=== PATIENT | female | born 1990 | race Caucasian/White ===

== ENCOUNTER → 2016-05-09 | Outpatient (CLI) | payer OTHER ==
[~2016-05-09] MED LIST: ACET-1311 PO; AMOX875T PO; CLON1TAB3 PO; DESO5TAB PO; DOCU-94 PO; IBUP-1050 PO; METH4PAK PO; OXYC-57 PO; OXYC1TAB3 PO; SENN1TAB77 PO; VENL150C PO
== END | disposition home or self-care (01) ==
LOC: C.LABSPEC 17:06
PROVIDERS: ATTEND Nurse Practitioner Adult Health
DX: N20.0 Calculus of kidney (principal)

== ENCOUNTER → 2016-05-17 | Outpatient (CLI) | payer OTHER | END | disposition home or self-care (01) | LOC: C.LABSPEC 10:27 | PROVIDERS: ATTEND Nurse Practitioner Adult Health | DX: N20.0 Calculus of kidney (principal) ==

== ENCOUNTER → 2016-05-17 | Outpatient (CLI) | payer OTHER ==
--- NOTE | 2016-05-17 18:04 | DIAGNOSTIC IMAGING REPORT ---
KUB CLINICAL HISTORY: Nephrolithiasis. Bilateral flank pain. FINDINGS: 2 AP abdominal radiographs are obtained. No prior studies are available for comparison at the time of dictation. There is a nonobstructed abdominal bowel gas pattern noting moderate colonic fecal retention. There is no radiographic evidence of nephrolithiasis. The bony structures appear intact. IMPRESSION: 1. Moderate constipation. 2. There is no radiographic evidence of nephrolithiasis. Electronically signed by: Jeff Sanchez M.D. 05/17/2016 6:02 PM Dictated Date/Time: 05/17/2016 6:01 PM
== END | disposition home or self-care (01) ==
LOC: C.RAD 16:28
PROVIDERS: ATTEND Nurse Practitioner Adult Health
DX: N20.0 Calculus of kidney (principal)

== ENCOUNTER 2016-05-18 11:44 | Emergency (ER) | payer OTHER ==
[~2016-05-18] VITALS: Ht 152.4 cm; Wt 94.7 kg
[~2016-05-18 11:44] MED LIST changes: -ACET-1311 PO; -AMOX875T PO; -DESO5TAB PO; -DOCU-94 PO; -IBUP-1050 PO; -METH4PAK PO; -OXYC-57 PO; -OXYC1TAB3 PO; -SENN1TAB77 PO
[2016-05-18 11:46] VITALS: TEMP 37.1; Ht 152.4 cm; Wt 94.7 kg
[2016-05-18] MEDS ORDERED: DESO5TAB PO (12:08)
[2016-05-18] MEDS ORDERED: IBUP-1050 PO (12:08)
[2016-05-18] MEDS ORDERED: ACET-1311 PO (12:08)
[2016-05-18] MEDS ORDERED: KETOROLAC TROMETHAMINE 30 MG/ML VIAL IV STA (12:53)
[2016-05-18] MEDS ORDERED: ONDANSETRON INJ 2 MG/ML 2 ML VIAL IV STA (12:53)
[2016-05-18] MEDS ORDERED: HYDROmorphone INJ 1 MG/ML SYR IV STA (12:53)
[2016-05-18] MEDS ORDERED: SODIUM CHLORIDE 0.9% 1000ML 1,000 ML IV STA (12:53)
[2016-05-18 13:06] LABS: URINE APPEARANCE CLEAR (CLEAR); URINE BILIRUBIN NEG (NEG); URINE COLOR YELLOW; URINE EPITHELIAL CELL AUTO >30 /lpf (0-5); URINE NITRITE NEG (NEG); URINE SPECIFIC GRAVITY 1.007 (1.000-1.030); UROBILINOGEN NEG (NEG); ZZUR CULT IF INDIC CLEAN CATCH YES
[2016-05-18 13:18] LABS: MANUAL MICROSCOPIC REQUIRED? NO; REVIEW REQ? YES
[2016-05-18 13:50] LABS: HEMATOCRIT 39.6 % (37-47); MEAN CELL VOLUME 83.5 fL (80-100); MEAN CORPUSCULAR HEMOGLOBIN 29.1 pg (25-34); MEAN CORPUSCULAR HGB CONC 34.8 g/dl (32-36); MEAN PLATELET VOLUME 9.3 fL (7.4-10.4); PLATELET COUNT 304 K/uL (130-400); RED BLOOD COUNT 4.74 M/uL (4.2-5.4); WHITE BLOOD COUNT 12.18 K/uL (4.8-10.8)
[2016-05-18 14:08] LABS: BLOOD UREA NITROGEN 13 mg/dl (7-18); BUN/CREATININE RATIO 17.7 (10-20); CALCIUM 9.5 mg/dl (8.5-10.1); CARBON DIOXIDE 23 mmol/L (21-32); CHLORIDE 108 mmol/L (98-107); CREATININE 0.72 mg/dl (0.60-1.20); GLUCOSE 63 mg/dl (70-99); POTASSIUM 3.7 mmol/L (3.5-5.1); SODIUM 141 mmol/L (136-145)
[2016-05-18 14:11] LABS: ALKALINE PHOSPHATASE 76 U/L (45-117); ALT/SGPT 45 U/L (12-78); AST/SGOT 14 U/L (15-37)
--- NOTE | 2016-05-18 14:15 | EMERGENCY ROOM VISIT NOTE ---
History Report prepared by Reginaldo: Terrie Freeman Under the Supervision of: Dr. Mikael Miranda M.D. First contact with patient: 12:47 Chief Complaint: BACK PAIN Stated Complaint: KIDNEY/BACK PAIN History of Present Illness The patient is a 25 year old female who presents to the Emergency Room with complaints of increased pain to her left flank, radiating around to her left lower abdominal quadrant, over the past few days. Currently, she rates her discomfort as a 5/10, which was not resolved after taking ibuprofen or Motrin at 0900 this morning. Since the time of onset, the patient has also felt nauseous, but she denies vomiting and she has not passed any movements of diarrhea. The patient has a significant history of kidney stones, were were previously diagnosed via CT scan at [facility] several years ago. As the pains to her left flank, radiating around to her left abdomen (which she states is similar to her past episodes of kidney stones) were exacerbated a few days ago, patient visited [facility] of urology and was referred to the hospital to have x- rays yesterday. Patient was not informed of the results of her x-rays, however she was instructed to drink large amounts of water. She denies having dysuria or hematuria, but states that the pain to her back worsens after drinking fluids. The patient denies recent fevers, chills, chest pain, shortness of breath, or increased swelling to her legs. Her last normal menstrual cycle was 3 weeks ago, and she denies chance of . Source of History: patient Onset: over the past few days Position: back (left flank) Symptom Intensity: 5/10 Timing: other (increased) Modifying Factors (Relieving): other (No relief with ibuprofen or Motrin) Associated Symptoms: + nausea, No SOB, No chest pain, No chills, No diarrhea , No fevers, No urinary symptoms, No vomiting Review of Systems See HPI for pertinent positives & negatives. A total of 10 systems reviewed and were otherwise negative. Past Medical & Surgical Medical Problems: (1) History of mononucleosis Social History Smoking Status: Current Every Day Smoker Alcohol Use: occasionally Drug Use: none Marital Status: Housing Status: lives with family Occupation Status: employed Current/Historical Medications Scheduled Desogestrel-Ethinyl Estradiol (Pimtrea 0.15-0.02/0.01 mg (18/09)), 1 TAB PO DAILY Docusate Sodium (Colace), 1 CAP PO BID Sennosides (Senokot), 8.6 MG PO HS Venlafaxine Hcl (Effexor Xr), 150 MG PO DAILY Scheduled PRN Clonazepam (Klonopin), 1 MG PO DAILY PRN for Anxiety Oxycodone/Acetaminophen 5MG/325MG (Percocet 5MG/325MG), 1-2 TAB PO Q4H PRN for Pain Miscellaneous Medications Acetaminophen (Tylenol), 650 MG PO Ibuprofen (Advil), 600 MG PO Allergies Coded Allergies: Gluten (Verified Allergy, Unknown, GI distress, 05/18/16) Sulfamethoxazole w/Trimethoprim (Unverified Allergy, Unknown, HIVES, ) Physical Exam Vital Signs Date Time Temp Pulse Resp B/P Pulse Ox O2 Delivery O2 Flow Rate FiO2 05/18/16 15:36 63 20 115/71 96 05/18/16 13:48 71 20 113/61 96 Room Air 05/18/16 11:46 37.1 81 17 124/79 96 Room Air Physical Exam GENERAL: Patient is a healthy-appearing well-nourished 25 year old female. HEAD: Normocephalic atraumatic EYES: Ocular movements intact pupils equal and react to light OROPHARYNX mucous membranes are moist no exudates present no erythema or edema present NECK: Supple no nuchal rigidity CHEST: Good equal expansion LUNGS: Clear and equal to auscultation CARDIAC: Normal S1 and S2 ABDOMEN: Soft nontender no guarding BACK: No CVA tenderness EXTREMITIES: No pain upon palpation normal muscle strength in all groups no clubbing cyanosis or edema NEURO: Patient is following commands is answering questions appropriately. Alert and oriented x3 Cranial Nerves 2-12 grossly intact Medical Decision & Procedures ER Provider Diagnostic Interpretation: US results as stated below per my review and radiologist interpretation: RENAL ULTRASOUND CLINICAL HISTORY: Left-sided flank pain. COMPARISON STUDY: KUB May 17, 2016. TECHNIQUE: Sonography of the kidneys and the urinary bladder was performed. FINDINGS: The right kidney measures 12.1 x 4.9 x 5.5 cm and the left measures 12 x 5.5 x 5.6 cm. There is no hydronephrosis. No calculi are identified. Renal echogenicity, size and cortical thickness are normal. Incidental no was made of fatty infiltration of the liver. Both ureteral jets were visualized. IMPRESSION: 1. Normal renal ultrasound. No hydronephrosis. 2. Fatty liver. Electronically signed by: Chino Chavez M.D. 05/18/2016 2:38 PM Dictated Date/Time: 05/18/2016 2:37 PM Laboratory Results 05/18/16 13:30 05/18/16 13:30 Test 05/18/16 12:15 05/18/16 13:30 Urine Color YELLOW Urine Appearance CLEAR (CLEAR) Urine pH 6.0 (4.5-7.5) Urine Specific [place] 1.007 (1.000-1.030) Urine Protein NEG (NEG) Urine Glucose (UA) NEG (NEG) Urine Ketones NEG (NEG) Urine Occult Blood 2+ (NEG) Urine Nitrite NEG (NEG) Urine Bilirubin NEG (NEG) Urine Urobilinogen NEG (NEG) Urine Leukocyte Esterase NEG (NEG) Urine WBC (Auto) 1-5 /hpf (0-5) Urine RBC (Auto) 0-4 /hpf (0-4) Urine Hyaline Casts (Auto) 0 /lpf (0-5) Urine Epithelial Cells (Auto) >30 /lpf (0-5) Urine Bacteria (Auto) 1+ (NEG) Urine Yeast (Auto) (NONE PRSENT) Red Blood Count 4.74 M/uL (4.2-5.4) Mean Corpuscular Volume 83.5 fL (80-100) Mean Corpuscular Hemoglobin 29.1 pg (25-34) Mean Corpuscular Hemoglobin Concent 34.8 g/dl (32-36) RDW Standard Deviation 40.4 fL (36.4-46.3) RDW Coefficient of Variation 13.3 % (11.5-14.5) Mean Platelet Volume 9.3 fL (7.4-10.4) Anion Gap 10.0 mmol/L (3-11) Est Creatinine Clear Calc Drug Dose 120.8 ml/min Estimated GFR () 133.0 Estimated GFR (Non- 114.8 BUN/Creatinine Ratio 17.7 (10-20) Calcium Level 9.5 mg/dl (8.5-10.1) Total Bilirubin 0.3 mg/dl (0.2-1) Direct Bilirubin < 0.1 mg/dl (0-0.2) Aspartate Amino Transf (AST/SGOT) 14 U/L (15-37) Alanine Aminotransferase (ALT/SGPT) 45 U/L (12-78) Alkaline Phosphatase 76 U/L (45-117) Total Protein 7.8 gm/dl (6.4-8.2) Albumin 3.9 gm/dl (3.4-5.0) Lipase 117 U/L (73-393) Labs reviewed by ED physician. Medications Administered Medications (Trade) Dose Ordered Sig/Dorina Route Start Time Stop Time Status Last Admin Dose Admin Sodium Chloride (Nss 1000ml) 1,000 ml @ 999 mls/hr Q1H1M STAT IV 05/18/16 12:53 05/18/16 13:53 DC 05/18/16 13:43 999 MLS/HR Ketorolac Tromethamine (Toradol Inj) 30 mg NOW STAT IV 05/18/16 12:53 05/18/16 12:55 DC 05/18/16 13:42 30 MG Hydromorphone HCl (Dilaudid Inj) 1 mg NOW STAT IV 05/18/16 12:53 05/18/16 12:55 DC 05/18/16 13:42 1 MG Ondansetron HCl (Zofran Inj) 4 mg NOW STAT IV 05/18/16 12:53 05/18/16 12:55 DC 05/18/16 13:41 4 MG Magnesium Citrate (Citrate Of Magnesia Soln) 296 ml NOW STAT PO 05/18/16 14:55 05/18/16 14:57 DC 05/18/16 15:35 296 ML ED Course 1248: Past medical records reviewed. The patient was evaluated in room C11. A complete history and physical examination was performed. 1253: Zofran 4 mg IV, Dilaudid 1 mg IV, Toradol 30 mg IV and NSS bolus IV were ordered. 1455: Upon reevaluation, the patient was feeling improved after receiving the medications. I updated her on the results of her radiology reports and lab tests. Magnesium Citrate 296 ml PO was ordered. Discharge instructions were also discussed at this time. She verbalized her understanding and agreement with the treatment plan, and she is now ready for disposition. Medical Decision Differential diagnosis: Etiologies such as renal colic, appendicitis, diverticulitis, mesenteric ischemia, aortic pathology, infections, inflammatory bowel disease, PUD, biliary pathology, UTI, as well as others were entertained. This is a 25-year-old female who presents emergency department complaining of flank pain. The patient does have a small amount of blood in her urine. She recently had a CAT scan and using shared medical decision making we felt that a another CAT scan would not benefit this patient. In addition the patient has a soft abdomen on examination. Serial abdominal examinations were performed on the patient in the emergency department and at no time did the patient exhibited a surgical abdomen. She has a normal CBC normal renal profile normal liver profile normal lipase. Renal ultrasound does not show any evidence of hydronephrosis. In addition the patient had a KUB which was performed yesterday which showed a large amount of constipation. Based on these findings I recommended a magnesium citrate cleanout for the patient as well as follow-up with urology. Patient was in agreement with the treatment plan. Impression Primary Impression: Hematuria Additional Impressions: Back pain Constipation Scribe Attestation The scribe's documentation has been prepared under my direction and personally reviewed by me in its entirety. I confirm that the note above accurately reflects all work, treatment, procedures, and medical decision making performed by me. Departure Information Dispostion Home / Self-Care Prescriptions Docusate Sodium (COLACE) 100 Mg Cap 1 CAP PO BID for 10 Days, #20 CAP Prov: Mikael Miranda MD 05/18/16 Sennosides (SENOKOT) 8.6 Mg Tab 8.6 MG PO HS for 10 Days, #10 TAB Prov: Mikael Miranda MD 05/18/16 Oxycodone/Acetaminophen 5MG/325MG (PERCOCET 5MG/325MG) Tab 1-2 TAB PO Q4H Y for Pain, #14 TAB Prov: Mikael Miranda MD 05/18/16 Referrals Anders Simon D.O. (PCP) Forms HOME CARE DOCUMENTATION FORM, IMPORTANT VISIT INFORMATION Patient Instructions Constipation, ED Flank Pain Uncertain Cause, My [facility] Additional Instructions Take 1/2 bottle of Mag Citrate Repeat second half in six hours Clear liquid diet next 48 hours Follow up with Dr Jackman's office You received narcotic or benzodiazepene medication while in the emergency room today. Do not drive, operate heavy machinery, or drink alcohol under the influence of this medication. Take 600 mg Ibuprofen every 6 hours Take Percocet for breakthrough pain You have been examined and treated today on an emergency basis only. This is not a substitute for, or an effort to provide, complete comprehensive medical care. It is impossible to recognize and treat all injuries or illnesses in a single emergency department visit. It is therefore important that you follow up closely with Dr Simon. Call as soon as possible for an appointment. Thank you for your time and consideration. I look forward to speaking with you again soon. Please don't hesitate to call us if you have any questions. Problem Qualifiers Additional Impressions: Back pain Back pain location: thoracic back pain Chronicity: acute Back pain laterality: left Qualified Codes: M54.6 - Pain in thoracic spine Constipation Constipation type: unspecified constipation type Qualified Codes: K59.00 - Constipation, unspecified
--- NOTE | 2016-05-18 14:40 | DIAGNOSTIC IMAGING REPORT ---
RENAL ULTRASOUND CLINICAL HISTORY: Left-sided flank pain. COMPARISON STUDY: KUB May 17, 2016. TECHNIQUE: Sonography of the kidneys and the urinary bladder was performed. FINDINGS: The right kidney measures 12.1 x 4.9 x 5.5 cm and the left measures 12 x 5.5 x 5.6 cm. There is no hydronephrosis. No calculi are identified. Renal echogenicity, size and cortical thickness are normal. Incidental no was made of fatty infiltration of the liver. Both ureteral jets were visualized. IMPRESSION: 1. Normal renal ultrasound. No hydronephrosis. 2. Fatty liver. Electronically signed by: Chino Chavez M.D. 05/18/2016 2:38 PM Dictated Date/Time: 05/18/2016 2:37 PM
[2016-05-18] MEDS ORDERED: MAGNESIUM CITRATE 296 ML/BTL PO STA (14:55)
[2016-05-18] MEDS ORDERED: OXYC-57 PO (14:57)
[2016-05-18] MEDS ORDERED: DOCU-94 PO (14:57)
[2016-05-18] MEDS ORDERED: SENN1TAB77 PO (14:57)
[2016-05-18 15:36] VITALS: BP 115/71; PULSE 63; O2SAT 96
== END 2016-05-18 15:37 | disposition home or self-care (01) ==
LOC: C.EDB 11:45 → C.EDC 15:37
DX: R31.9 Hematuria, unspecified (principal); M54.6 Pain in thoracic spine; K59.00 Constipation, unspecified; F17.200 Nicotine dependence, unspecified, uncomplicated

== ENCOUNTER 2016-05-28 21:13 | Emergency (ER) | payer OTHER ==
[~2016-05-28] VITALS: Ht 152.4 cm; Wt 93.4 kg
[~2016-05-28 21:13] MED LIST changes: +ACET-1311 PO; +DESO5TAB PO; +DOCU-94 PO; +IBUP-1050 PO; +OXYC-57 PO; +SENN1TAB77 PO
[2016-05-28 21:16] VITALS: BP 130/89; PULSE 102; TEMP 37; Ht 152.4 cm; Wt 93.4 kg
[2016-05-28 21:19] VITALS: O2SAT 97
[2016-05-28] MEDS ORDERED: AMOXICIL/CLAVU 875MG HOME PACK PO ONE (21:45)
[2016-05-28] MEDS ORDERED: OXYCODONE IR HOME PACK PO ONE (21:45)
[2016-05-28] MEDS ORDERED: AMOX875T PO (21:49)
[2016-05-28] MEDS ORDERED: METH4PAK PO (21:49)
[2016-05-28] MEDS ORDERED: OXYC1TAB3 PO (21:49)
--- NOTE | 2016-05-29 00:22 | EMERGENCY ROOM VISIT NOTE ---
History First contact with patient: 21:29 Chief Complaint: THROAT PAIN/INJURY Stated Complaint: TONSILS SWOLLEN, WHITE STONES IN THROAT History of Present Illness The patient is a 25 year old female who presents to the Emergency Room with complaints of right-sided throat pain. The patient reports that she has tonsil stones. She also came into contact with someone recently with strep throat. She does report a history of strep tonsillitis as a child. The patient has had no recent runny nose, congestion or cough. She denies any fevers or chills. She rates her discomfort an 8 out of 10. Review of Systems 10 system review was performed and was negative except for pertinent positives and negatives as indicated in history of present illness Past Medical/Surgical History Medical Problems: (1) Calculus Of Kidney (2) History of mononucleosis (3) Nicotine Dependence, Unspecified, Uncomplicated (4) Polycystic ovarian syndrome (5) Tobacco Use Disorder Surgical Problems: (1) History of carpal tunnel surgery (2) History of wisdom tooth extraction Family History FH: cancer FH: diabetes mellitus FH: gallbladder disease FH: heart disease FH: hypertension FH: kidney disease FH: lung disease Social History Smoking Status: Current Every Day Smoker Alcohol Use: occasionally Drug Use: none Marital Status: Housing Status: lives with family Occupation Status: employed Current/Historical Medications Scheduled Amoxicillin & Pot Clavulanate (Augmentin 875-125 mg), 1 TAB PO BID Desogestrel-Ethinyl Estradiol (Pimtrea 0.15-0.02/0.01 mg (18/09)), 1 TAB PO DAILY Methylprednisolone (Medrol Dosepak), 0 PO DAILY Venlafaxine Hcl (Effexor Xr), 150 MG PO DAILY Scheduled PRN Clonazepam (Klonopin), 1 MG PO DAILY PRN for Anxiety Oxycodone Ir (Roxicodone Ir), 1-2 TAB PO Q4H PRN for Pain Oxycodone/Acetaminophen 5MG/325MG (Percocet 5MG/325MG), 1-2 TAB PO Q4H PRN for Pain Miscellaneous Medications Acetaminophen (Tylenol), 650 MG PO Ibuprofen (Advil), 600 MG PO Allergies Coded Allergies: Gluten (Verified Allergy, Unknown, GI distress, 05/18/16) Sulfamethoxazole w/Trimethoprim (Unverified Allergy, Unknown, HIVES, ) Physical Exam Vital Signs Date Time Temp Pulse Resp B/P Pulse Ox O2 Delivery O2 Flow Rate FiO2 05/28/16 21:19 97 Room Air 05/28/16 21:16 37.0 102 18 130/89 96 Room Air Pain Rating (0-10): 8.0 Physical Exam CONSTITUTIONAL: Healthy and well nourished. Alert and oriented X 3 with positive affect. HEENT: Normocephalic, atraumatic. Pupils equal, round and reactive. Ears and nares are clear. No obvious facial edema noted. OROPHARYNX: The patient has bilateral symmetric tonsillar hypertrophy with exudates. Negative trismus. Uvula is midline. No other oral lesions appreciated. No postnasal drip. No evidence for Juancarlos's angina or retropharyngeal abscess. NECK: Full active range of motion without discomfort. Trachea is mobile and midline. No nuchal rigidity. LYMPHATICS: The patient has moderate right anterior cervical chain adenopathy. RESPIRATORY: Clear to auscultation bilaterally with no wheezing, crackles, rhonchi or stridor. CARDIOVASCULAR: Regular rate and rhythm with no murmurs, rubs or gallops. GASTROINTESTINAL: Bowel sounds present in all quadrants. No hepatosplenomegaly. No tenderness to palpation. MUSCULOSKELETAL: Full range of motion of all joints without discomfort. INTEGUMENTARY: No rash or other significant dermatologic conditions noted. NEUROLOGIC: No focal neurologic deficits noted. Medical Decision & Procedures Medications Administered Medications (Trade) Dose Ordered Sig/Dorina Route Start Time Stop Time Status Last Admin Dose Admin Amoxicillin/ Clavulanate Potassium (Augmentin 875MG Home Pack) 1 homepack UD ONCE PO 05/28/16 21:45 05/28/16 21:46 DC 05/28/16 22:01 1 HOMEPACK Oxycodone HCl (Roxicodone Immediate Rel 5MG Home Pack) 1 homepack UD ONCE PO 05/28/16 21:45 05/28/16 21:46 DC 05/28/16 22:01 1 HOMEPACK Prednisone (PredniSONE TAB) 40 mg STK-MED ONCE .ROUTE 05/28/16 21:48 05/28/16 21:49 DC 05/28/16 22:01 40 MG Prednisone (PredniSONE TAB) 10 mg STK-MED ONCE .ROUTE 05/28/16 21:48 05/28/16 21:50 DC 05/28/16 22:01 10 MG ED Course Patient history and physical exam were performed. Nurse's notes were reviewed. I did suggest intravenous treatment, but the patient refused. She reports being terrified of needles. She requested pills for treatment. She was administered prednisone 50 mg, and dispensed Augmentin and OxyIR home packs. She was provided additional prescriptions for Augmentin, Medrol Dosepak and OxyIR. She was encouraged to alternate ibuprofen and Tylenol for additional baseline pain relief. I did suggest that she follow-[facility] She was instructed to return to the emergency department for any progressively worsening symptoms. The patient was happy with plan of care, voice understanding of all discharge instructions, and rated her discomfort a 6 out of 10 at the time of discharge. Medical Decision [place] Drug Monitoring Program Search Results: patient reviewed within database, no issues identified Impression Primary Impression: Exudative tonsillitis Additional Impression: Lymphadenopathy, anterior cervical Departure Information Dispostion Home / Self-Care Condition GOOD Prescriptions Oxycodone Ir (Roxicodone Ir) 5 Mg Tab 1-2 TAB PO Q4H Y for Pain, #15 TAB For Initial Treatment Prov: Yair Mullins PA 05/28/16 Methylprednisolone (MEDROL DOSEPAK) 4 Mg Rafal 0 PO DAILY, #1 PKT Prov: Yair Mullins PA 05/28/16 Amoxicillin & Pot Clavulanate (Augmentin 875-125 mg) 1 Tab Tab 1 TAB PO BID for 10 Days, #20 TAB Prov: Yair Mullins PA 05/28/16 Referrals David Álvarez M.D. Forms HOME CARE DOCUMENTATION FORM, IMPORTANT VISIT INFORMATION Patient Instructions My [facility] Additional Instructions Complete all Augmentin antibiotics as prescribed. Take Medrol Dosepak daily as prescribed - next dose on Monday morning. Ibuprofen 800 mg and/or Tylenol 1000 mg every 8 hours. You may also alternate these medications for more effective pain relief: Ibuprofen --4 HRS--> Tylenol --4 HRS--> ibuprofen --4 HRS--> Tylenol .... OxyIR if needed for worse pain. Do not drink or drive while taking OxyIR. Return to the emergency department for progressively worsening symptoms. Suggest follow-up with Rusty PATEL (Dr. Álvarez) for further reevaluation and management. Problem Qualifiers
== END 2016-05-28 22:05 | disposition home or self-care (01) ==
LOC: C.EDB 21:14 → C.EDD 22:05
DX: J03.90 Acute tonsillitis, unspecified (principal); R59.0 Localized enlarged lymph nodes; F17.200 Nicotine dependence, unspecified, uncomplicated; Z98.890 Other specified postprocedural states; Z98.818 Other dental procedure status; Z88.2 Allergy status to sulfonamides; Z80.9 Family history of malignant neoplasm, unspecified; Z83.3 Family history of diabetes mellitus; Z82.49 Family history of ischemic heart disease and other diseases of the circulatory system; Z84.1 Family history of disorders of kidney and ureter